=== PATIENT | male | born 1965 | race Caucasian/White ===

== ENCOUNTER 2020-05-28 14:00 | Emergency (ER) | payer BC ==
[~2020-05-28] VITALS: Ht 182.9 cm; Wt 82.0 kg
[2020-05-28] MEDS ORDERED: FLUORESCEIN SODIUM 1MG/STRIP LEFTEYE ONE (15:45)
[2020-05-28] MEDS ORDERED: TETRACAINE 0.5% OPHTH DROPS 4ML LEFTEYE ONE (15:45)
[2020-05-28 18:17] VITALS: BP 162/96
== END 2020-05-28 18:18 | disposition home or self-care (01) ==
LOC: ER 14:55
DX: S00.83XA Contusion of other part of head, initial encounter (principal); W18.39XA Other fall on same level, initial encounter; Y93.89 Activity, other specified; Y92.89 Other specified places as the place of occurrence of the external cause; Y99.8 Other external cause status
CPT/HCPCS: 70486; 99285